=== PATIENT | female | born 1940 | race African-American/Black ===

== ENCOUNTER 2020-12-23 17:30 | Inpatient (IN) | payer MEDICARE, MEDICAID ==
[~2020-12-23] VITALS: Ht 152.4 cm; Wt 84.5 kg
[2020-12-23 19:39] LABS: BASOPHILS % 0.7 % (0.0-2.0); EOSINOPHILS % 3.8 % (0.0-5.0); HEMATOCRIT. 29.9 % (36.0-48.0); HEMOGLOBIN. 9.8 g/dL (12.0-16.0); LYMPHOCYTES % 19.2 % (20.0-50.0); MEAN CORPUSCULAR HEMOGLOBIN 31.8 pg (28.0-32.0); MEAN CORPUSCULAR VOLUME 96.8 fL (81.0-99.0); MEAN PLATELET VOLUME 8.3 fl (7.4-10.4); MONOCYTES % 9.3 % (2.0-8.0); PLATELET 234 x1000/uL (130-400); RED BLOOD CELL COUNT 3.09 mill/uL (4.2-5.4); RED CELL DISTRIBUTION WIDTH 13.6 % (11.6-14.6)
[2020-12-23 19:46] LABS: CHLORIDE 115 mEq/L (98-107)
[2020-12-23] MEDS ORDERED: FUROSEMIDE 40MG/4ML VIAL IVP NR (21:00)
[2020-12-23] MEDS: NITROGLYCERIN 50MG PREMIX 250 ML IV PRN (22:38)
[2020-12-24] VITALS (58 sets, daily range): BP systolic 113–215; BP diastolic 53–128
[2020-12-24] MEDS ORDERED: GUAIFENESIN 200MG/10ML SUGAR FREE UDC PO PRN (06:15)
[2020-12-24] MEDS ORDERED: MORPHINE SULFATE 2 MG/ML CPJ (NOT FOR IM USE) IV PRN (06:15)
[2020-12-24] MEDS ORDERED: ACETAMINOPHEN 325MG TABLET PO PRN (06:15)
[2020-12-24] MEDS ORDERED: AMLODIPINE 10MG TABLET PO SCH (06:15)
[2020-12-24] MEDS ORDERED: IPRATROPIUM/ALBUTEROL 0.5-3(2.5)MG/3ML NEB HHN PRN (06:15)
[2020-12-24] MEDS ORDERED: CLONIDINE 0.1MG TABLET PO PRN (06:15)
[2020-12-24] MEDS ORDERED: ONDANSETRON HCL 4MG/2ML INJ IV PRN (06:15)
[2020-12-24] MEDS ORDERED: FUROSEMIDE 40MG/4ML VIAL IV SCH ×2 (06:15→18:00)
[2020-12-24] MEDS ORDERED: MAGNESIUM/ALUMINUM HYDROXIDE/SIMETHICONE 30ML UDC PO PRN (09:00)
[2020-12-24] MEDS ORDERED: DOCUSATE SODIUM 100MG CAPSULE PO PRN (09:00)
[2020-12-24] MEDS ORDERED: ISOSORBIDE DINITRATE 10MG TABLET PO SCH (09:45)
[2020-12-24] MEDS ORDERED: NALOXONE HCL 0.4MG/ML VIAL IV PRN (10:00)
[2020-12-24] MEDS: ASPIRIN 81MG EC TABLET PO SCH (10:11)
[2020-12-24] MEDS: ENOXAPARIN 30MG/0.3ML SYR SUBCUT SCH (10:11)
[2020-12-24] MEDS ORDERED: LIDOCAINE HCL 1% 10 MG/ML 10ML VIAL ONE (11:12)
[2020-12-24] MEDS: FUROSEMIDE 40MG/4ML VIAL IV SCH ×2 (11:14→17:17)
[2020-12-24] MEDS: CARVEDILOL 6.25 MG TABLET PO SCH ×2 (11:14→20:51)
[2020-12-24] MEDS: HYDRALAZINE HCL 100MG TABLET PO SCH ×3 (11:15→17:18)
[2020-12-24] MEDS ORDERED: NITROGLYCERIN 50MG PREMIX 250 ML IV PRN (11:30)
[2020-12-24] MEDS: NITROGLYCERIN 50MG PREMIX 250 ML IV PRN (11:55)
[2020-12-24] MEDS: ISOSORBIDE DINITRATE 20MG TABLET PO SCH ×2 (12:58→17:18)
[2020-12-24] MEDS ORDERED: HYDRALAZINE HCL 25MG TABLET PO SCH (13:00)
[2020-12-24] MEDS: BUDESONIDE 0.5MG/2ML NEB HHN SCH (20:17)
[2020-12-24] MEDS: IPRATROPIUM/ALBUTEROL 0.5-3(2.5)MG/3ML NEB HHN SCH (20:17)
[2020-12-24] MEDS: ATORVASTATIN CALCIUM 40MG TABLET PO SCH (20:51)
[2020-12-25] VITALS (82 sets, daily range): BP systolic 103–154; BP diastolic 45–96
[2020-12-25] MEDS: IPRATROPIUM/ALBUTEROL 0.5-3(2.5)MG/3ML NEB HHN SCH ×4 (00:34→20:52)
[2020-12-25 05:57] LABS: BASOPHILS % 0.8 % (0.0-2.0); EOSINOPHILS % 0.7 % (0.0-5.0); HEMATOCRIT. 24.7 % (36.0-48.0); HEMOGLOBIN. 8.3 g/dL (12.0-16.0); LYMPHOCYTES % 14.9 % (20.0-50.0); MEAN CORPUSCULAR HEMOGLOBIN 32.3 pg (28.0-32.0); MEAN CORPUSCULAR VOLUME 95.9 fL (81.0-99.0); MEAN PLATELET VOLUME 8.5 fl (7.4-10.4); MONOCYTES % 9.6 % (2.0-8.0); PLATELET 205 x1000/uL (130-400); RED BLOOD CELL COUNT 2.58 mill/uL (4.2-5.4); RED CELL DISTRIBUTION WIDTH 13.5 % (11.6-14.6)
[2020-12-25] MEDS: FUROSEMIDE 40MG/4ML VIAL IV SCH ×2 (05:59→17:52)
[2020-12-25 06:01] LABS: CHLORIDE 114 mEq/L (98-107)
[2020-12-25 06:11] LABS: LDL CHOLESTEROL 69 mg/dL (5-100)
[2020-12-25 06:13] LABS: HDL CHOLESTEROL 42 mg/dL (40-59)
[2020-12-25] MEDS: ENOXAPARIN 30MG/0.3ML SYR SUBCUT SCH (09:15)
[2020-12-25] MEDS: ASPIRIN 81MG EC TABLET PO SCH (09:15)
[2020-12-25] MEDS: HYDRALAZINE HCL 100MG TABLET PO SCH ×3 (09:15→17:52)
[2020-12-25] MEDS: ISOSORBIDE DINITRATE 20MG TABLET PO SCH ×3 (09:15→17:52)
[2020-12-25] MEDS: CARVEDILOL 6.25 MG TABLET PO SCH ×2 (09:15→20:26)
[2020-12-25 14:35] LABS: CREATINE KINASE 40 IU/L (26-192)
[2020-12-25] MEDS: BUDESONIDE 0.5MG/2ML NEB HHN SCH ×2 (16:55→20:52)
[2020-12-25] MEDS: ATORVASTATIN CALCIUM 40MG TABLET PO SCH (20:26)
[2020-12-26] MEDS: IPRATROPIUM/ALBUTEROL 0.5-3(2.5)MG/3ML NEB HHN SCH ×4 (01:32→21:43)
[2020-12-26] MEDS: FUROSEMIDE 40MG/4ML VIAL IV SCH (05:35)
[2020-12-26 07:13] LABS: BASOPHILS % 0.8 % (0.0-2.0); HEMATOCRIT. 23.6 % (36.0-48.0); HEMOGLOBIN. 8.1 g/dL (12.0-16.0); LYMPHOCYTES % 16.7 % (20.0-50.0); MEAN CORPUSCULAR HEMOGLOBIN 32.6 pg (28.0-32.0); MEAN CORPUSCULAR VOLUME 95.5 fL (81.0-99.0); MEAN PLATELET VOLUME 8.3 fl (7.4-10.4); NEUTROPHILS % 66.5 % (40.0-76.0); PLATELET 199 x1000/uL (130-400); RED BLOOD CELL COUNT 2.48 mill/uL (4.2-5.4); RED CELL DISTRIBUTION WIDTH 13.7 % (11.6-14.6)
[2020-12-26 08:32] VITALS: BP 145/63
[2020-12-26] MEDS: HYDRALAZINE HCL 100MG TABLET PO SCH ×3 (09:01→18:55)
[2020-12-26] MEDS: ENOXAPARIN 30MG/0.3ML SYR SUBCUT SCH (09:01)
[2020-12-26] MEDS: CARVEDILOL 6.25 MG TABLET PO SCH ×2 (09:01→21:10)
[2020-12-26] MEDS: ISOSORBIDE DINITRATE 20MG TABLET PO SCH ×3 (09:01→18:55)
[2020-12-26] MEDS: ASPIRIN 81MG EC TABLET PO SCH (09:01)
[2020-12-26] MEDS: BUDESONIDE 0.5MG/2ML NEB HHN SCH ×2 (09:10→21:43)
[2020-12-26 12:07] VITALS: BP 126/56
[2020-12-26 16:00] VITALS: BP 134/57
[2020-12-26 19:59] LABS: CLARITY URINE CLOUDY (CLEAR); COLOR URINE YELLOW (YELLOW); KETONES URINE NEGATIVE (NEGATIVE); LEUKOCYTE ESTERASE URINE TRACE (NEGATIVE); NITRITE URINE NEGATIVE (NEGATIVE); OCCULT BLOOD URINE NEGATIVE (NEGATIVE); PH URINE 6.5 (4.5-8.0); PROTEIN URINE 3+ (NEGATIVE); SPECIFIC GRAVITY URINE 1.013 (1.005-1.030); UROBILINOGEN URINE 0.2 E.U./dL (0.2-1.0)
[2020-12-26 20:00] VITALS: BP 131/65
[2020-12-26] MEDS: ATORVASTATIN CALCIUM 40MG TABLET PO SCH (21:10)
[2020-12-27] VITALS (7 sets, daily range): BP systolic 124–164; BP diastolic 58–78
[2020-12-27] MEDS: IPRATROPIUM/ALBUTEROL 0.5-3(2.5)MG/3ML NEB HHN SCH ×3 (01:21→15:24)
[2020-12-27 06:45] LABS: HEMATOCRIT. 23.7 % (36.0-48.0); HEMOGLOBIN. 7.9 g/dL (12.0-16.0); MEAN CORPUSCULAR HEMOGLOBIN 32.6 pg (28.0-32.0); MEAN CORPUSCULAR VOLUME 97.3 fL (81.0-99.0); MEAN PLATELET VOLUME 8.5 fl (7.4-10.4); PLATELET 209 x1000/uL (130-400); RED BLOOD CELL COUNT 2.44 mill/uL (4.2-5.4); RED CELL DISTRIBUTION WIDTH 13.6 % (11.6-14.6)
[2020-12-27 06:59] LABS: PHOSPHORUS 4.4 mg/dL (2.5-4.9)
[2020-12-27] MEDS: ENOXAPARIN 30MG/0.3ML SYR SUBCUT SCH (08:48)
[2020-12-27] MEDS: HYDRALAZINE HCL 100MG TABLET PO SCH ×3 (08:49→18:04)
[2020-12-27] MEDS: CARVEDILOL 6.25 MG TABLET PO SCH (08:49)
[2020-12-27] MEDS: ISOSORBIDE DINITRATE 20MG TABLET PO SCH ×3 (08:49→18:04)
[2020-12-27] MEDS: ASPIRIN 81MG EC TABLET PO SCH (08:49)
[2020-12-27] MEDS ORDERED: FUROSEMIDE 40MG/4ML VIAL IV SCH (09:00)
[2020-12-27 12:07] LABS: PLATELET ESTIMATE NORMAL
[2020-12-27 13:07] LABS: ANTI-NUCLEAR ANTIBODIES DIRECT Negative (Negative)
[2020-12-27] MEDS: BUDESONIDE 0.5MG/2ML NEB HHN SCH (15:26)
== END 2020-12-27 20:50 | disposition home health service (06) | DRG 291 ==
LOC: ER 17:30 → MICUSO 22:17 → CVICU 12-24 10:50 → 6WST 12-25 22:30
PROVIDERS: ADMIT Hospitalist; ATTEND Hospitalist
PROC: 5A09357 Assistance with Respiratory Ventilation, Less than 24 Consecutive Hours, Continuous Positive Airway Pressure (ICD-10-PCS; principal; 2020-12-23)
PROC: 5A09357 Assistance with Respiratory Ventilation, Less than 24 Consecutive Hours, Continuous Positive Airway Pressure (ICD-10-PCS; 2020-12-24)
PROC: 02HV33Z Insertion of Infusion Device into Superior Vena Cava, Percutaneous Approach (ICD-10-PCS; 2020-12-24)
PROC: B548ZZA Ultrasonography of Superior Vena Cava, Guidance (ICD-10-PCS; 2020-12-24)
DX: I13.0 Hypertensive heart and chronic kidney disease with heart failure and stage 1 through stage 4 chronic kidney disease, or unspecified chronic kidney disease (principal); I50.33 Acute on chronic diastolic (congestive) heart failure; J96.01 Acute respiratory failure with hypoxia; I16.1 Hypertensive emergency; N17.9 Acute kidney failure, unspecified; E44.1 Mild protein-calorie malnutrition; I42.9 Cardiomyopathy, unspecified; I34.0 Nonrheumatic mitral (valve) insufficiency; J44.9 Chronic obstructive pulmonary disease, unspecified; N18.9 Chronic kidney disease, unspecified; D64.9 Anemia, unspecified; Z20.822 Contact with and (suspected) exposure to COVID-19; E11.22 Type 2 diabetes mellitus with diabetic chronic kidney disease; Z68.36 Body mass index [BMI] 36.0-36.9, adult; Z80.3 Family history of malignant neoplasm of breast; Z82.49 Family history of ischemic heart disease and other diseases of the circulatory system; Z83.3 Family history of diabetes mellitus; Z86.73 Personal history of transient ischemic attack (TIA), and cerebral infarction without residual deficits; Z87.891 Personal history of nicotine dependence; Z91.19 Patient's noncompliance with other medical treatment and regimen; Z88.1 Allergy status to other antibiotic agents
CPT/HCPCS: 36415; 71045; 76770; 76937; 80048; 80053; 80061; 81003; 82550; 82962; 83735; 83880; 84100; 84484; 85025; 86038; 86160; 87426; 93005; 93306; 93970; 94640; 94660; 97162; 99285; C1725; J1650; J1940; J3490; J7040; J7626; A4315

== ENCOUNTER 2021-01-01 14:59 | Inpatient (IN) | payer MEDICARE, MEDICAID ==
[~2021-01-01] VITALS: Ht 152.4 cm; Wt 74.5 kg
[2021-01-01] MEDS ORDERED: DEXTROSE 50% WATER 50ML SYRINGE IV ONE ×3 (16:00→23:45)
[2021-01-01 17:03] LABS: BASOPHILS % 0.8 % (0.0-2.0); EOSINOPHILS % 0.9 % (0.0-5.0); HEMATOCRIT. 29.1 % (36.0-48.0); HEMOGLOBIN. 9.6 g/dL (12.0-16.0); LYMPHOCYTES % 13.7 % (20.0-50.0); MEAN CORPUSCULAR HEMOGLOBIN 32.3 pg (28.0-32.0); MEAN CORPUSCULAR VOLUME 97.4 fL (81.0-99.0); MEAN PLATELET VOLUME 8.2 fl (7.4-10.4); MONOCYTES % 10.6 % (2.0-8.0); PLATELET 308 x1000/uL (130-400); RED BLOOD CELL COUNT 2.98 mill/uL (4.2-5.4); RED CELL DISTRIBUTION WIDTH 13.5 % (11.6-14.6)
[2021-01-01 17:12] LABS: CHLORIDE 109 mEq/L (98-107)
[2021-01-01] MEDS ORDERED: DEXT 5%/0.9% NACL 1,000 ML IV ONE (18:45)
[2021-01-01] MEDS ORDERED: DIPHENHYDRAMINE 50MG/ML VIAL IV PRN (19:30)
[2021-01-01] MEDS ORDERED: ONDANSETRON HCL 4MG/2ML INJ IV PRN (19:30)
[2021-01-01] MEDS ORDERED: CLONIDINE 0.1MG TABLET PO PRN (19:30)
[2021-01-01] MEDS ORDERED: IPRATROPIUM/ALBUTEROL 0.5-3(2.5)MG/3ML NEB HHN PRN (19:30)
[2021-01-01] MEDS ORDERED: DEXT 10% WATER 1,000 ML IV ONE (22:45)
[2021-01-02] VITALS (46 sets, daily range): BP systolic 121–160; BP diastolic 62–90
[2021-01-02] MEDS: DEXTROSE 50% WATER 50ML SYRINGE IV PRN ×5 (01:52→11:33)
[2021-01-02] MEDS: BLOOD SUGAR DIAGNOSTIC STRIP TEST SCH ×22 (02:00→23:00)
[2021-01-02] MEDS: DEXT 10% WATER 1,000 ML IV SCH ×2 (02:36→17:38)
[2021-01-02 05:55] LABS: CHLORIDE 108 mEq/L (98-107)
[2021-01-02 05:56] LABS: BASOPHILS % 0.6 % (0.0-2.0); EOSINOPHILS % 1.9 % (0.0-5.0); HEMATOCRIT. 25.9 % (36.0-48.0); HEMOGLOBIN. 8.9 g/dL (12.0-16.0); LYMPHOCYTES % 17.1 % (20.0-50.0); MEAN CORPUSCULAR HEMOGLOBIN 32.9 pg (28.0-32.0); MEAN CORPUSCULAR VOLUME 96.1 fL (81.0-99.0); MEAN PLATELET VOLUME 7.8 fl (7.4-10.4); MONOCYTES % 10.5 % (2.0-8.0); NEUTROPHILS % 69.9 % (40.0-76.0); PLATELET 300 x1000/uL (130-400); RED CELL DISTRIBUTION WIDTH 13.5 % (11.6-14.6)
[2021-01-02] MEDS ORDERED: ISOS20TA57 PO (08:32)
[2021-01-02] MEDS ORDERED: FURO-151 PO (08:32)
[2021-01-02] MEDS ORDERED: AMLO10TA4 PO (08:32)
[2021-01-02] MEDS ORDERED: GLIM1TAB PO (08:32)
[2021-01-02] MEDS ORDERED: OMEP20CA14 PO (08:32)
[2021-01-02] MEDS ORDERED: ASPI-1497 PO (08:32)
[2021-01-02] MEDS ORDERED: LIP40 MT (08:32)
[2021-01-02] MEDS ORDERED: HYDR100T26 PO (08:32)
[2021-01-02] MEDS ORDERED: AMLODIPINE 10MG TABLET PO SCH (08:45)
[2021-01-02] MEDS: ENOXAPARIN 30MG/0.3ML SYR SUBCUT SCH (10:11)
[2021-01-02] MEDS: ATORVASTATIN CALCIUM 40MG TABLET PO SCH (21:05)
[2021-01-03] VITALS (47 sets, daily range): BP systolic 101–165; BP diastolic 51–84
[2021-01-03] MEDS: DEXT 10% WATER 1,000 ML IV SCH ×2 (00:18→14:56)
[2021-01-03] MEDS: BLOOD SUGAR DIAGNOSTIC STRIP TEST SCH ×22 (01:00→22:05)
[2021-01-03 06:34] LABS: BASOPHILS % 0.7 % (0.0-2.0); EOSINOPHILS % 6.2 % (0.0-5.0); HEMATOCRIT. 27.7 % (36.0-48.0); HEMOGLOBIN. 9.1 g/dL (12.0-16.0); LYMPHOCYTES % 28.1 % (20.0-50.0); MEAN CORPUSCULAR HEMOGLOBIN 31.6 pg (28.0-32.0); MEAN CORPUSCULAR VOLUME 96.7 fL (81.0-99.0); MEAN PLATELET VOLUME 8.3 fl (7.4-10.4); MONOCYTES % 14.2 % (2.0-8.0); NEUTROPHILS % 50.8 % (40.0-76.0); PLATELET 303 x1000/uL (130-400); RED BLOOD CELL COUNT 2.87 mill/uL (4.2-5.4); RED CELL DISTRIBUTION WIDTH 13.8 % (11.6-14.6)
[2021-01-03] MEDS: AMLODIPINE 10MG TABLET PO SCH (09:10)
[2021-01-03] MEDS: ENOXAPARIN 30MG/0.3ML SYR SUBCUT SCH (11:06)
[2021-01-03] MEDS ORDERED: ISOS20TA8 PO (15:29)
[2021-01-03 15:32] LABS: CLARITY URINE CLOUDY (CLEAR); COLOR URINE YELLOW (YELLOW); KETONES URINE NEGATIVE (NEGATIVE); LEUKOCYTE ESTERASE URINE 3+ (NEGATIVE); NITRITE URINE NEGATIVE (NEGATIVE); OCCULT BLOOD URINE TRACE (NEGATIVE); PROTEIN URINE 2+ (NEGATIVE); SPECIFIC GRAVITY URINE 1.005 (1.005-1.030); UROBILINOGEN URINE 0.2 E.U./dL (0.2-1.0)
[2021-01-03] MEDS: OMEPRAZOLE 20MG CAPSULE EXTENDED RELEASE PO SCH (16:13)
[2021-01-03] MEDS ORDERED: ISOSORBIDE MONONITRATE 20MG TABLET PO SCH (17:00)
[2021-01-03] MEDS: HYDRALAZINE HCL 100MG TABLET PO SCH (17:17)
[2021-01-03] MEDS: FUROSEMIDE 40MG TABLET PO SCH (17:17)
[2021-01-03] MEDS: ISOSORBIDE DINITRATE 20MG TABLET PO SCH (17:18)
[2021-01-03] MEDS: ATORVASTATIN CALCIUM 40MG TABLET PO SCH (20:35)
[2021-01-04] VITALS (26 sets, daily range): BP systolic 110–148; BP diastolic 53–76
[2021-01-04] MEDS: BLOOD SUGAR DIAGNOSTIC STRIP TEST SCH ×6 (04:00→20:27)
[2021-01-04 05:41] LABS: MEAN CORPUSCULAR VOLUME 95.9 fL (81.0-99.0); MEAN PLATELET VOLUME 7.9 fl (7.4-10.4); PLATELET 309 x1000/uL (130-400); RED BLOOD CELL COUNT 2.92 mill/uL (4.2-5.4); RED CELL DISTRIBUTION WIDTH 13.6 % (11.6-14.6)
[2021-01-04] MEDS: ENOXAPARIN 30MG/0.3ML SYR SUBCUT SCH (08:24)
[2021-01-04] MEDS: ISOSORBIDE DINITRATE 20MG TABLET PO SCH ×2 (08:25→16:19)
[2021-01-04] MEDS: FUROSEMIDE 40MG TABLET PO SCH ×2 (08:25→16:18)
[2021-01-04] MEDS: AMLODIPINE 10MG TABLET PO SCH (08:25)
[2021-01-04] MEDS: OMEPRAZOLE 20MG CAPSULE EXTENDED RELEASE PO SCH (08:25)
[2021-01-04] MEDS: ASPIRIN 81MG EC TABLET PO SCH (08:26)
[2021-01-04] MEDS: HYDRALAZINE HCL 100MG TABLET PO SCH ×3 (08:26→16:18)
[2021-01-04 13:25] LABS: PLATELET ESTIMATE NORMAL
[2021-01-04] MEDS: ATORVASTATIN CALCIUM 40MG TABLET PO SCH (20:57)
[2021-01-05] VITALS: BP 141/71
[2021-01-05] MEDS: BLOOD SUGAR DIAGNOSTIC STRIP TEST SCH ×6 (00:28→20:00)
[2021-01-05] MEDS: ISOSORBIDE DINITRATE 20MG TABLET PO SCH ×4 (00:33→16:45)
[2021-01-05 04:00] VITALS: BP 128/50
[2021-01-05] MEDS: OMEPRAZOLE 20MG CAPSULE EXTENDED RELEASE PO SCH (06:31)
[2021-01-05] MEDS: FUROSEMIDE 40MG TABLET PO SCH ×2 (07:15→16:45)
[2021-01-05 08:00] VITALS: BP 148/72
[2021-01-05 08:02] LABS: EOSINOPHILS % 3.6 % (0.0-5.0); HEMATOCRIT. 25.6 % (36.0-48.0); HEMOGLOBIN. 8.6 g/dL (12.0-16.0); LYMPHOCYTES % 20.4 % (20.0-50.0); MEAN CORPUSCULAR HEMOGLOBIN 32.1 pg (28.0-32.0); MEAN CORPUSCULAR VOLUME 95.7 fL (81.0-99.0); MONOCYTES % 14.3 % (2.0-8.0); NEUTROPHILS % 60.7 % (40.0-76.0); PLATELET 306 x1000/uL (130-400); RED BLOOD CELL COUNT 2.68 mill/uL (4.2-5.4); RED CELL DISTRIBUTION WIDTH 13.4 % (11.6-14.6)
[2021-01-05] MEDS: HYDRALAZINE HCL 100MG TABLET PO SCH ×3 (08:41→16:44)
[2021-01-05] MEDS: AMLODIPINE 10MG TABLET PO SCH (08:41)
[2021-01-05] MEDS: ENOXAPARIN 30MG/0.3ML SYR SUBCUT SCH (08:42)
[2021-01-05] MEDS: ASPIRIN 81MG EC TABLET PO SCH (08:42)
[2021-01-05 12:00] VITALS: BP 147/68
[2021-01-05 16:00] VITALS: BP 126/55
[2021-01-05 20:00] VITALS: BP 144/67
[2021-01-05] MEDS: ATORVASTATIN CALCIUM 40MG TABLET PO SCH (21:04)
[2021-01-06] VITALS: BP 122/56
[2021-01-06] MEDS: BLOOD SUGAR DIAGNOSTIC STRIP TEST SCH ×6 (00:34→20:00)
[2021-01-06 04:00] VITALS: BP 135/62
[2021-01-06] MEDS: FUROSEMIDE 40MG TABLET PO SCH ×2 (06:23→17:29)
[2021-01-06] MEDS: OMEPRAZOLE 20MG CAPSULE EXTENDED RELEASE PO SCH (06:23)
[2021-01-06 08:00] VITALS: BP 152/56
[2021-01-06] MEDS: HYDRALAZINE HCL 100MG TABLET PO SCH ×3 (08:49→17:29)
[2021-01-06] MEDS: ASPIRIN 81MG EC TABLET PO SCH (08:49)
[2021-01-06] MEDS: AMLODIPINE 10MG TABLET PO SCH (08:50)
[2021-01-06] MEDS: ISOSORBIDE DINITRATE 20MG TABLET PO SCH ×3 (08:50→17:29)
[2021-01-06] MEDS: ENOXAPARIN 30MG/0.3ML SYR SUBCUT SCH (10:24)
[2021-01-06 12:00] VITALS: BP 134/65
[2021-01-06 15:54] LABS: BASOPHILS % 1.1 % (0.0-2.0); HEMATOCRIT. 25.7 % (36.0-48.0); HEMOGLOBIN. 8.6 g/dL (12.0-16.0); LYMPHOCYTES % 18.1 % (20.0-50.0); MEAN CORPUSCULAR HEMOGLOBIN 32.1 pg (28.0-32.0); MEAN CORPUSCULAR VOLUME 96.3 fL (81.0-99.0); MEAN PLATELET VOLUME 7.6 fl (7.4-10.4); MONOCYTES % 13.8 % (2.0-8.0); PLATELET 323 x1000/uL (130-400); RED BLOOD CELL COUNT 2.67 mill/uL (4.2-5.4); RED CELL DISTRIBUTION WIDTH 13.4 % (11.6-14.6)
[2021-01-06 16:00] VITALS: BP 147/67
[2021-01-06 20:00] VITALS: BP 140/60
[2021-01-06] MEDS: ATORVASTATIN CALCIUM 40MG TABLET PO SCH (21:15)
[2021-01-07] VITALS: BP 135/66
[2021-01-07 04:00] VITALS: BP 137/64
[2021-01-07] MEDS: BLOOD SUGAR DIAGNOSTIC STRIP TEST SCH ×6 (04:12→20:32)
[2021-01-07] MEDS: OMEPRAZOLE 20MG CAPSULE EXTENDED RELEASE PO SCH (05:51)
[2021-01-07] MEDS: FUROSEMIDE 40MG TABLET PO SCH ×2 (05:51→18:26)
[2021-01-07 06:25] LABS: HEMATOCRIT. 25.1 % (36.0-48.0); HEMOGLOBIN. 8.5 g/dL (12.0-16.0); MEAN CORPUSCULAR HEMOGLOBIN 32.6 pg (28.0-32.0); MEAN CORPUSCULAR VOLUME 96.2 fL (81.0-99.0); MEAN PLATELET VOLUME 7.7 fl (7.4-10.4); PLATELET 309 x1000/uL (130-400); RED BLOOD CELL COUNT 2.61 mill/uL (4.2-5.4); RED CELL DISTRIBUTION WIDTH 13.3 % (11.6-14.6)
[2021-01-07 06:53] LABS: FOLIC ACID (FOLATE) SERUM 5.3 ng/mL (>5.38)
[2021-01-07 08:00] VITALS: BP 150/66
[2021-01-07] MEDS: ASPIRIN 81MG EC TABLET PO SCH (09:06)
[2021-01-07] MEDS: ISOSORBIDE DINITRATE 20MG TABLET PO SCH ×3 (09:06→18:26)
[2021-01-07] MEDS: HYDRALAZINE HCL 100MG TABLET PO SCH ×3 (09:06→18:26)
[2021-01-07] MEDS: AMLODIPINE 10MG TABLET PO SCH (09:06)
[2021-01-07] MEDS: ENOXAPARIN 30MG/0.3ML SYR SUBCUT SCH (10:25)
[2021-01-07 12:00] VITALS: BP 134/72
[2021-01-07 16:00] VITALS: BP 129/61
[2021-01-07 18:16] LABS: PLATELET ESTIMATE NORMAL
[2021-01-07] MEDS: FOLIC ACID 1MG TABLET PO SCH (18:26)
[2021-01-07 20:00] VITALS: BP 144/71
[2021-01-07] MEDS: ATORVASTATIN CALCIUM 40MG TABLET PO SCH (20:41)
[2021-01-08] VITALS: BP 136/68
[2021-01-08 04:00] VITALS: BP_SYST 128; BP_SYST 143; BP_DIAS 70; BP_DIAS 83
[2021-01-08] MEDS: BLOOD SUGAR DIAGNOSTIC STRIP TEST SCH ×6 (04:00→20:00)
[2021-01-08] MEDS: FUROSEMIDE 40MG TABLET PO SCH ×2 (06:33→17:24)
[2021-01-08] MEDS: OMEPRAZOLE 20MG CAPSULE EXTENDED RELEASE PO SCH (06:33)
[2021-01-08 06:53] LABS: HEMATOCRIT. 24.9 % (36.0-48.0); HEMOGLOBIN. 8.6 g/dL (12.0-16.0); MEAN CORPUSCULAR HEMOGLOBIN 33.1 pg (28.0-32.0); MEAN CORPUSCULAR VOLUME 95.9 fL (81.0-99.0); MEAN PLATELET VOLUME 7.8 fl (7.4-10.4); PLATELET 310 x1000/uL (130-400); RED CELL DISTRIBUTION WIDTH 12.9 % (11.6-14.6)
[2021-01-08 08:00] VITALS: BP 145/65
[2021-01-08] MEDS: ENOXAPARIN 30MG/0.3ML SYR SUBCUT SCH (08:53)
[2021-01-08] MEDS: FOLIC ACID 1MG TABLET PO SCH (08:53)
[2021-01-08] MEDS: ISOSORBIDE DINITRATE 20MG TABLET PO SCH ×3 (08:53→17:08)
[2021-01-08] MEDS: ASPIRIN 81MG EC TABLET PO SCH (08:53)
[2021-01-08] MEDS: AMLODIPINE 10MG TABLET PO SCH (08:54)
[2021-01-08] MEDS: HYDRALAZINE HCL 100MG TABLET PO SCH ×3 (08:54→17:08)
[2021-01-08 12:00] VITALS: BP 113/55
[2021-01-08 14:32] LABS: PLATELET ESTIMATE NORMAL
[2021-01-08 16:00] VITALS: BP 110/50
[2021-01-08 20:00] VITALS: BP 134/60
[2021-01-08] MEDS: ATORVASTATIN CALCIUM 40MG TABLET PO SCH (20:41)
[2021-01-09] VITALS: BP 139/66
[2021-01-09 04:00] VITALS: BP 132/65
[2021-01-09] MEDS: BLOOD SUGAR DIAGNOSTIC STRIP TEST SCH ×6 (04:00→20:09)
[2021-01-09 06:47] LABS: BASOPHILS % 0.8 % (0.0-2.0); HEMATOCRIT. 26.9 % (36.0-48.0); HEMOGLOBIN. 9.2 g/dL (12.0-16.0); LYMPHOCYTES % 17.5 % (20.0-50.0); MEAN CORPUSCULAR HEMOGLOBIN 32.8 pg (28.0-32.0); MEAN CORPUSCULAR VOLUME 95.9 fL (81.0-99.0); MEAN PLATELET VOLUME 7.5 fl (7.4-10.4); MONOCYTES % 11.7 % (2.0-8.0); PLATELET 349 x1000/uL (130-400); RED BLOOD CELL COUNT 2.81 mill/uL (4.2-5.4); RED CELL DISTRIBUTION WIDTH 13.1 % (11.6-14.6)
[2021-01-09] MEDS: FUROSEMIDE 40MG TABLET PO SCH ×2 (07:21→18:14)
[2021-01-09] MEDS: OMEPRAZOLE 20MG CAPSULE EXTENDED RELEASE PO SCH (07:21)
[2021-01-09 08:00] VITALS: BP 160/76
[2021-01-09] MEDS: ISOSORBIDE DINITRATE 20MG TABLET PO SCH ×3 (10:42→18:17)
[2021-01-09] MEDS: HYDRALAZINE HCL 100MG TABLET PO SCH ×3 (10:42→18:18)
[2021-01-09] MEDS: ENOXAPARIN 30MG/0.3ML SYR SUBCUT SCH (10:43)
[2021-01-09] MEDS: ASPIRIN 81MG EC TABLET PO SCH (10:43)
[2021-01-09] MEDS: FOLIC ACID 1MG TABLET PO SCH (10:43)
[2021-01-09] MEDS: AMLODIPINE 10MG TABLET PO SCH (10:43)
[2021-01-09 12:00] VITALS: BP 127/58
[2021-01-09 16:00] VITALS: BP 140/62
[2021-01-09] MEDS: AMOXICILLIN/POTASSIUM CLAVULANATE 500/125MG TAB PO SCH (18:14)
[2021-01-09 20:00] VITALS: BP 139/61
[2021-01-09] MEDS ORDERED: CEPHALEXIN 250MG CAPSULE PO SCH (21:00)
[2021-01-09] MEDS: ATORVASTATIN CALCIUM 40MG TABLET PO SCH (22:06)
[2021-01-10] VITALS: BP 119/52
[2021-01-10] MEDS: BLOOD SUGAR DIAGNOSTIC STRIP TEST SCH ×6 (00:59→20:00)
[2021-01-10 04:00] VITALS: BP_SYST 113; BP_SYST 133; BP_DIAS 60; BP_DIAS 82
[2021-01-10] MEDS: AMOXICILLIN/POTASSIUM CLAVULANATE 500/125MG TAB PO SCH ×2 (07:05→18:37)
[2021-01-10] MEDS: OMEPRAZOLE 20MG CAPSULE EXTENDED RELEASE PO SCH (07:05)
[2021-01-10] MEDS: FUROSEMIDE 40MG TABLET PO SCH ×2 (07:06→18:36)
[2021-01-10 08:00] VITALS: BP 117/49
[2021-01-10] MEDS: AMLODIPINE 10MG TABLET PO SCH (09:29)
[2021-01-10] MEDS: ASPIRIN 81MG EC TABLET PO SCH (09:29)
[2021-01-10 09:30] LABS: BASOPHILS % 1.1 % (0.0-2.0); EOSINOPHILS % 3.3 % (0.0-5.0); HEMATOCRIT. 26.8 % (36.0-48.0); HEMOGLOBIN. 8.9 g/dL (12.0-16.0); LYMPHOCYTES % 21.4 % (20.0-50.0); MEAN CORPUSCULAR HEMOGLOBIN 31.5 pg (28.0-32.0); MEAN CORPUSCULAR VOLUME 95.6 fL (81.0-99.0); MEAN PLATELET VOLUME 7.6 fl (7.4-10.4); MONOCYTES % 11.8 % (2.0-8.0); NEUTROPHILS % 62.4 % (40.0-76.0); PLATELET 359 x1000/uL (130-400); RED BLOOD CELL COUNT 2.81 mill/uL (4.2-5.4); RED CELL DISTRIBUTION WIDTH 12.9 % (11.6-14.6)
[2021-01-10] MEDS: ENOXAPARIN 30MG/0.3ML SYR SUBCUT SCH (09:30)
[2021-01-10] MEDS: FOLIC ACID 1MG TABLET PO SCH (09:30)
[2021-01-10] MEDS: ISOSORBIDE DINITRATE 20MG TABLET PO SCH ×3 (09:30→18:37)
[2021-01-10] MEDS: HYDRALAZINE HCL 100MG TABLET PO SCH ×3 (09:30→18:37)
[2021-01-10 12:00] VITALS: BP 124/56
[2021-01-10 16:00] VITALS: BP 122/54
[2021-01-10 20:00] VITALS: BP 156/73
[2021-01-10] MEDS: ATORVASTATIN CALCIUM 40MG TABLET PO SCH (21:06)
[2021-01-11] VITALS: BP 136/65
[2021-01-11] MEDS: BLOOD SUGAR DIAGNOSTIC STRIP TEST SCH ×7 (03:31→23:21)
[2021-01-11 04:00] VITALS: BP 147/75
[2021-01-11] MEDS: AMOXICILLIN/POTASSIUM CLAVULANATE 500/125MG TAB PO SCH ×2 (06:25→17:34)
[2021-01-11] MEDS: FUROSEMIDE 40MG TABLET PO SCH ×2 (06:25→17:34)
[2021-01-11] MEDS: OMEPRAZOLE 20MG CAPSULE EXTENDED RELEASE PO SCH (06:25)
[2021-01-11 06:49] LABS: BASOPHILS % 1.2 % (0.0-2.0); EOSINOPHILS % 6.2 % (0.0-5.0); HEMATOCRIT. 28.9 % (36.0-48.0); HEMOGLOBIN. 9.7 g/dL (12.0-16.0); MEAN CORPUSCULAR HEMOGLOBIN 32.2 pg (28.0-32.0); MEAN CORPUSCULAR VOLUME 96.1 fL (81.0-99.0); MEAN PLATELET VOLUME 7.5 fl (7.4-10.4); MONOCYTES % 14.3 % (2.0-8.0); NEUTROPHILS % 56.3 % (40.0-76.0); PLATELET 364 x1000/uL (130-400); RED BLOOD CELL COUNT 3.01 mill/uL (4.2-5.4); RED CELL DISTRIBUTION WIDTH 13.1 % (11.6-14.6)
[2021-01-11 08:00] VITALS: BP 155/77
[2021-01-11] MEDS: AMLODIPINE 10MG TABLET PO SCH (09:23)
[2021-01-11] MEDS: ISOSORBIDE DINITRATE 20MG TABLET PO SCH ×3 (09:23→17:34)
[2021-01-11] MEDS: ASPIRIN 81MG EC TABLET PO SCH (09:23)
[2021-01-11] MEDS: FOLIC ACID 1MG TABLET PO SCH (09:23)
[2021-01-11] MEDS: HYDRALAZINE HCL 100MG TABLET PO SCH ×3 (09:23→17:34)
[2021-01-11] MEDS: ENOXAPARIN 30MG/0.3ML SYR SUBCUT SCH (09:24)
[2021-01-11 12:00] VITALS: BP 127/64
[2021-01-11 16:00] VITALS: BP 121/64
[2021-01-11 20:00] VITALS: BP 129/59
[2021-01-11] MEDS: ATORVASTATIN CALCIUM 40MG TABLET PO SCH (22:04)
[2021-01-12] VITALS: BP 114/60
[2021-01-12 04:00] VITALS: BP 145/72
[2021-01-12] MEDS: BLOOD SUGAR DIAGNOSTIC STRIP TEST SCH ×5 (04:55→20:00)
[2021-01-12] MEDS: OMEPRAZOLE 20MG CAPSULE EXTENDED RELEASE PO SCH (06:53)
[2021-01-12] MEDS: AMOXICILLIN/POTASSIUM CLAVULANATE 500/125MG TAB PO SCH ×2 (06:53→17:02)
[2021-01-12] MEDS: FUROSEMIDE 40MG TABLET PO SCH ×2 (06:53→17:01)
[2021-01-12 08:00] VITALS: BP 141/69
[2021-01-12] MEDS: HYDRALAZINE HCL 100MG TABLET PO SCH ×3 (08:51→17:01)
[2021-01-12] MEDS: ISOSORBIDE DINITRATE 20MG TABLET PO SCH ×3 (08:52→17:01)
[2021-01-12] MEDS: ASPIRIN 81MG EC TABLET PO SCH (08:52)
[2021-01-12] MEDS: FOLIC ACID 1MG TABLET PO SCH (08:52)
[2021-01-12] MEDS: AMLODIPINE 10MG TABLET PO SCH (08:52)
[2021-01-12] MEDS: ENOXAPARIN 30MG/0.3ML SYR SUBCUT SCH (10:32)
[2021-01-12 12:00] VITALS: BP 120/58
[2021-01-12 16:00] VITALS: BP 125/59
[2021-01-12 20:00] VITALS: BP 130/66
[2021-01-12] MEDS: ATORVASTATIN CALCIUM 40MG TABLET PO SCH (21:51)
[2021-01-13] VITALS: BP 103/55
[2021-01-13 04:00] VITALS: BP 135/62
[2021-01-13] MEDS: BLOOD SUGAR DIAGNOSTIC STRIP TEST SCH ×6 (04:00→20:43)
[2021-01-13] MEDS: OMEPRAZOLE 20MG CAPSULE EXTENDED RELEASE PO SCH (06:17)
[2021-01-13] MEDS: FUROSEMIDE 40MG TABLET PO SCH ×2 (06:17→17:25)
[2021-01-13] MEDS: AMOXICILLIN/POTASSIUM CLAVULANATE 500/125MG TAB PO SCH ×2 (06:17→17:25)
[2021-01-13 06:23] LABS: BASOPHILS % 1.3 % (0.0-2.0); HEMATOCRIT. 26.3 % (36.0-48.0); HEMOGLOBIN. 8.8 g/dL (12.0-16.0); LYMPHOCYTES % 22.9 % (20.0-50.0); MEAN CORPUSCULAR HEMOGLOBIN 32.2 pg (28.0-32.0); MEAN CORPUSCULAR VOLUME 95.8 fL (81.0-99.0); MONOCYTES % 12.8 % (2.0-8.0); PLATELET 325 x1000/uL (130-400); RED BLOOD CELL COUNT 2.75 mill/uL (4.2-5.4)
[2021-01-13 08:00] VITALS: BP 129/67
[2021-01-13] MEDS: HYDRALAZINE HCL 100MG TABLET PO SCH ×3 (08:57→17:25)
[2021-01-13] MEDS: ISOSORBIDE DINITRATE 20MG TABLET PO SCH ×3 (08:57→17:25)
[2021-01-13] MEDS: AMLODIPINE 10MG TABLET PO SCH (08:57)
[2021-01-13] MEDS: FOLIC ACID 1MG TABLET PO SCH (08:57)
[2021-01-13] MEDS: ASPIRIN 81MG EC TABLET PO SCH (08:57)
[2021-01-13] MEDS: ENOXAPARIN 30MG/0.3ML SYR SUBCUT SCH (08:58)
[2021-01-13 12:00] VITALS: BP 143/65
[2021-01-13 16:00] VITALS: BP 123/54
[2021-01-13 20:00] VITALS: BP 124/55
[2021-01-13] MEDS: ATORVASTATIN CALCIUM 40MG TABLET PO SCH (20:31)
[2021-01-14] VITALS: BP 149/75
[2021-01-14 04:00] VITALS: BP 142/67
[2021-01-14] MEDS: BLOOD SUGAR DIAGNOSTIC STRIP TEST SCH ×6 (04:02→20:00)
[2021-01-14] MEDS: AMOXICILLIN/POTASSIUM CLAVULANATE 500/125MG TAB PO SCH (06:20)
[2021-01-14] MEDS: FUROSEMIDE 40MG TABLET PO SCH ×2 (06:21→18:13)
[2021-01-14] MEDS: OMEPRAZOLE 20MG CAPSULE EXTENDED RELEASE PO SCH (06:21)
[2021-01-14 08:00] VITALS: BP 119/63
[2021-01-14] MEDS: HYDRALAZINE HCL 100MG TABLET PO SCH ×3 (08:44→18:20)
[2021-01-14] MEDS: FOLIC ACID 1MG TABLET PO SCH (08:44)
[2021-01-14] MEDS: AMLODIPINE 10MG TABLET PO SCH (08:45)
[2021-01-14] MEDS: ASPIRIN 81MG EC TABLET PO SCH (08:45)
[2021-01-14] MEDS: ISOSORBIDE DINITRATE 20MG TABLET PO SCH ×3 (08:46→18:19)
[2021-01-14] MEDS: ENOXAPARIN 30MG/0.3ML SYR SUBCUT SCH (08:47)
[2021-01-14] MEDS: CYANOCOBALAMIN 1000MCG/ML VIAL IM SCH (08:47)
[2021-01-14 11:54] VITALS: BP 121/62
[2021-01-14] MEDS: POLYVINYL ALCOHOL OPHTH DROPS 15ML BOTHEYE SCH ×2 (12:39→18:20)
[2021-01-14 16:00] VITALS: BP 118/60
[2021-01-14 20:00] VITALS: BP 114/54
[2021-01-14] MEDS: ATORVASTATIN CALCIUM 40MG TABLET PO SCH (22:02)
[2021-01-15] VITALS: BP 108/49
[2021-01-15] MEDS: POLYVINYL ALCOHOL OPHTH DROPS 15ML BOTHEYE SCH ×5 (00:41→23:47)
[2021-01-15 04:00] VITALS: BP 134/58
[2021-01-15] MEDS: BLOOD SUGAR DIAGNOSTIC STRIP TEST SCH ×7 (05:25→23:49)
[2021-01-15] MEDS: OMEPRAZOLE 20MG CAPSULE EXTENDED RELEASE PO SCH (06:48)
[2021-01-15] MEDS: FUROSEMIDE 40MG TABLET PO SCH ×2 (06:48→16:53)
[2021-01-15 08:00] VITALS: BP 120/72
[2021-01-15] MEDS: CYANOCOBALAMIN 1000MCG/ML VIAL IM SCH (10:13)
[2021-01-15] MEDS: ISOSORBIDE DINITRATE 20MG TABLET PO SCH ×3 (10:13→16:53)
[2021-01-15] MEDS: AMLODIPINE 10MG TABLET PO SCH (10:14)
[2021-01-15] MEDS: ASPIRIN 81MG EC TABLET PO SCH (10:14)
[2021-01-15] MEDS: HYDRALAZINE HCL 100MG TABLET PO SCH ×3 (10:14→16:54)
[2021-01-15] MEDS: FOLIC ACID 1MG TABLET PO SCH (10:17)
[2021-01-15] MEDS: ENOXAPARIN 30MG/0.3ML SYR SUBCUT SCH (10:19)
[2021-01-15 12:00] VITALS: BP 148/63
[2021-01-15 16:00] VITALS: BP 124/60
[2021-01-15 20:47] VITALS: BP 143/64
[2021-01-15] MEDS: ATORVASTATIN CALCIUM 40MG TABLET PO SCH (21:56)
[2021-01-16 00:05] VITALS: BP 150/68
[2021-01-16 04:00] VITALS: BP 134/59
[2021-01-16] MEDS: POLYVINYL ALCOHOL OPHTH DROPS 15ML BOTHEYE SCH ×3 (06:49→19:15)
[2021-01-16] MEDS: FUROSEMIDE 40MG TABLET PO SCH ×2 (06:49→16:25)
[2021-01-16] MEDS: OMEPRAZOLE 20MG CAPSULE EXTENDED RELEASE PO SCH (06:49)
[2021-01-16 08:00] VITALS: BP 153/72
[2021-01-16] MEDS: BLOOD SUGAR DIAGNOSTIC STRIP TEST SCH ×4 (08:00→20:00)
[2021-01-16 08:52] LABS: BASOPHILS % 1.1 % (0.0-2.0); EOSINOPHILS % 3.5 % (0.0-5.0); HEMOGLOBIN. 9.6 g/dL (12.0-16.0); LYMPHOCYTES % 20.4 % (20.0-50.0); MEAN CORPUSCULAR HEMOGLOBIN 31.5 pg (28.0-32.0); MEAN PLATELET VOLUME 7.6 fl (7.4-10.4); MONOCYTES % 8.1 % (2.0-8.0); NEUTROPHILS % 66.9 % (40.0-76.0); PLATELET 318 x1000/uL (130-400); RED BLOOD CELL COUNT 3.05 mill/uL (4.2-5.4); RED CELL DISTRIBUTION WIDTH 12.9 % (11.6-14.6)
[2021-01-16] MEDS: AMLODIPINE 10MG TABLET PO SCH (09:07)
[2021-01-16] MEDS: ISOSORBIDE DINITRATE 20MG TABLET PO SCH ×3 (09:08→16:25)
[2021-01-16] MEDS: FOLIC ACID 1MG TABLET PO SCH (09:08)
[2021-01-16] MEDS: ASPIRIN 81MG EC TABLET PO SCH (09:08)
[2021-01-16] MEDS: CYANOCOBALAMIN 1000MCG/ML VIAL IM SCH (09:09)
[2021-01-16] MEDS: ENOXAPARIN 30MG/0.3ML SYR SUBCUT SCH (09:09)
[2021-01-16] MEDS: HYDRALAZINE HCL 100MG TABLET PO SCH ×3 (09:09→16:25)
[2021-01-16 12:00] VITALS: BP 134/66
[2021-01-16 16:00] VITALS: BP 142/64
[2021-01-16 20:00] VITALS: BP 118/71
[2021-01-16] MEDS: ATORVASTATIN CALCIUM 40MG TABLET PO SCH (20:28)
[2021-01-17] VITALS: BP 147/69
[2021-01-17] MEDS: BLOOD SUGAR DIAGNOSTIC STRIP TEST SCH ×7 (00:24→23:55)
[2021-01-17] MEDS: POLYVINYL ALCOHOL OPHTH DROPS 15ML BOTHEYE SCH ×4 (00:24→17:55)
[2021-01-17 04:00] VITALS: BP 125/61
[2021-01-17] MEDS: FUROSEMIDE 40MG TABLET PO SCH ×2 (06:30→17:54)
[2021-01-17] MEDS: OMEPRAZOLE 20MG CAPSULE EXTENDED RELEASE PO SCH (06:30)
[2021-01-17] MEDS: CYANOCOBALAMIN 1000MCG/ML VIAL IM SCH (08:40)
[2021-01-17] MEDS: ISOSORBIDE DINITRATE 20MG TABLET PO SCH ×3 (08:40→17:54)
[2021-01-17] MEDS: FOLIC ACID 1MG TABLET PO SCH (08:41)
[2021-01-17] MEDS: AMLODIPINE 10MG TABLET PO SCH (08:41)
[2021-01-17] MEDS: HYDRALAZINE HCL 100MG TABLET PO SCH ×3 (08:41→17:55)
[2021-01-17 12:00] VITALS: BP 122/60
[2021-01-17 16:00] VITALS: BP 131/58
[2021-01-17 20:00] VITALS: BP 126/51
[2021-01-17] MEDS: ATORVASTATIN CALCIUM 40MG TABLET PO SCH (21:16)
[2021-01-18] VITALS: BP 151/58
[2021-01-18 04:00] VITALS: BP 151/67
[2021-01-18] MEDS: BLOOD SUGAR DIAGNOSTIC STRIP TEST SCH ×5 (04:00→20:00)
[2021-01-18] MEDS: POLYVINYL ALCOHOL OPHTH DROPS 15ML BOTHEYE SCH ×3 (06:13→17:12)
[2021-01-18 08:00] VITALS: BP 175/67
[2021-01-18] MEDS: HYDRALAZINE HCL 100MG TABLET PO SCH ×3 (09:40→17:11)
[2021-01-18] MEDS: FOLIC ACID 1MG TABLET PO SCH (09:40)
[2021-01-18] MEDS: CYANOCOBALAMIN 1000MCG/ML VIAL IM SCH (09:40)
[2021-01-18] MEDS: ISOSORBIDE DINITRATE 20MG TABLET PO SCH ×3 (09:41→17:11)
[2021-01-18] MEDS: OMEPRAZOLE 20MG CAPSULE EXTENDED RELEASE PO SCH (09:41)
[2021-01-18] MEDS: AMLODIPINE 10MG TABLET PO SCH (09:42)
[2021-01-18 12:00] VITALS: BP 154/57
[2021-01-18] MEDS: FUROSEMIDE 40MG TABLET PO SCH ×2 (14:10→17:11)
[2021-01-18 16:00] VITALS: BP 149/52
[2021-01-18 20:00] VITALS: BP 129/58
[2021-01-18] MEDS: ATORVASTATIN CALCIUM 40MG TABLET PO SCH (21:32)
[2021-01-19] VITALS: BP 147/64
[2021-01-19] MEDS: POLYVINYL ALCOHOL OPHTH DROPS 15ML BOTHEYE SCH ×5 (00:18→23:46)
[2021-01-19 04:00] VITALS: BP 121/59
[2021-01-19] MEDS: BLOOD SUGAR DIAGNOSTIC STRIP TEST SCH ×7 (04:16→23:46)
[2021-01-19] MEDS: FUROSEMIDE 40MG TABLET PO SCH ×2 (06:53→17:25)
[2021-01-19] MEDS: OMEPRAZOLE 20MG CAPSULE EXTENDED RELEASE PO SCH (06:53)
[2021-01-19 08:00] VITALS: BP 149/70
[2021-01-19] MEDS: CYANOCOBALAMIN 1000MCG/ML VIAL IM SCH (08:42)
[2021-01-19] MEDS: FOLIC ACID 1MG TABLET PO SCH (08:43)
[2021-01-19] MEDS: HYDRALAZINE HCL 100MG TABLET PO SCH ×4 (08:43→21:11)
[2021-01-19] MEDS: AMLODIPINE 10MG TABLET PO SCH (08:43)
[2021-01-19] MEDS: ISOSORBIDE DINITRATE 20MG TABLET PO SCH ×3 (08:44→17:25)
[2021-01-19 12:00] VITALS: BP 120/53
[2021-01-19 16:00] VITALS: BP 124/62
[2021-01-19 20:00] VITALS: BP 123/62
[2021-01-19] MEDS: ATORVASTATIN CALCIUM 40MG TABLET PO SCH (21:07)
[2021-01-20] VITALS: BP 144/96
[2021-01-20] MEDS: BLOOD SUGAR DIAGNOSTIC STRIP TEST SCH ×5 (03:55→20:00)
[2021-01-20 04:00] VITALS: BP 145/78
[2021-01-20] MEDS: POLYVINYL ALCOHOL OPHTH DROPS 15ML BOTHEYE SCH ×3 (06:24→17:55)
[2021-01-20] MEDS: FUROSEMIDE 40MG TABLET PO SCH ×2 (06:25→17:55)
[2021-01-20] MEDS: OMEPRAZOLE 20MG CAPSULE EXTENDED RELEASE PO SCH (06:25)
[2021-01-20] MEDS: HYDRALAZINE HCL 100MG TABLET PO SCH ×3 (06:25→21:09)
[2021-01-20 08:00] VITALS: BP 136/62
[2021-01-20] MEDS: FOLIC ACID 1MG TABLET PO SCH (08:42)
[2021-01-20] MEDS: AMLODIPINE 10MG TABLET PO SCH (08:42)
[2021-01-20] MEDS: CYANOCOBALAMIN 1000MCG/ML VIAL IM SCH (08:42)
[2021-01-20] MEDS: ISOSORBIDE DINITRATE 20MG TABLET PO SCH ×3 (08:42→17:55)
[2021-01-20 12:00] VITALS: BP 132/60
[2021-01-20 16:00] VITALS: BP 123/58
[2021-01-20 20:00] VITALS: BP 143/73
[2021-01-20] MEDS: ATORVASTATIN CALCIUM 40MG TABLET PO SCH (21:09)
[2021-01-21] VITALS: BP 121/59
[2021-01-21] MEDS: BLOOD SUGAR DIAGNOSTIC STRIP TEST SCH ×6 (00:29→20:00)
[2021-01-21] MEDS: POLYVINYL ALCOHOL OPHTH DROPS 15ML BOTHEYE SCH ×4 (00:29→17:39)
[2021-01-21 04:00] VITALS: BP 153/71
[2021-01-21] MEDS: HYDRALAZINE HCL 100MG TABLET PO SCH ×3 (06:14→21:17)
[2021-01-21] MEDS: FUROSEMIDE 40MG TABLET PO SCH ×2 (06:15→17:38)
[2021-01-21] MEDS: OMEPRAZOLE 20MG CAPSULE EXTENDED RELEASE PO SCH (06:20)
[2021-01-21 08:00] VITALS: BP 140/58
[2021-01-21] MEDS: FOLIC ACID 1MG TABLET PO SCH (09:30)
[2021-01-21] MEDS: AMLODIPINE 10MG TABLET PO SCH (09:31)
[2021-01-21] MEDS: ISOSORBIDE DINITRATE 20MG TABLET PO SCH ×3 (09:31→17:38)
[2021-01-21 12:00] VITALS: BP 133/64
[2021-01-21 16:00] VITALS: BP 124/68
[2021-01-21 20:00] VITALS: BP 133/60
[2021-01-21] MEDS: ATORVASTATIN CALCIUM 40MG TABLET PO SCH (21:16)
[2021-01-22] VITALS: BP 137/59
[2021-01-22] MEDS: BLOOD SUGAR DIAGNOSTIC STRIP TEST SCH ×5 (00:38→16:00)
[2021-01-22] MEDS: POLYVINYL ALCOHOL OPHTH DROPS 15ML BOTHEYE SCH ×4 (00:38→17:44)
[2021-01-22 04:00] VITALS: BP 158/79
[2021-01-22] MEDS: FUROSEMIDE 40MG TABLET PO SCH ×2 (06:15→17:44)
[2021-01-22] MEDS: HYDRALAZINE HCL 100MG TABLET PO SCH ×2 (06:15→13:02)
[2021-01-22] MEDS: OMEPRAZOLE 20MG CAPSULE EXTENDED RELEASE PO SCH (06:20)
[2021-01-22 08:00] VITALS: BP 137/71
[2021-01-22] MEDS: FOLIC ACID 1MG TABLET PO SCH (08:52)
[2021-01-22] MEDS: ISOSORBIDE DINITRATE 20MG TABLET PO SCH ×3 (08:53→17:44)
[2021-01-22] MEDS: AMLODIPINE 10MG TABLET PO SCH (08:53)
[2021-01-22 12:00] VITALS: BP 140/62
[2021-01-22 16:00] VITALS: BP 110/61
[2021-01-22] MEDS ORDERED: CYAN-50 MT (16:19)
[2021-01-22] MEDS ORDERED: FOLI-43 PO (16:19)
[2021-01-22 17:16] VITALS: BP 110/61
[2021-01-27] MEDS ORDERED: CYANOCOBALAMIN 1000MCG/ML VIAL IM SCH (09:00)
== END 2021-01-22 20:37 | DRG 70 ==
LOC: ER 14:59 → EDBEDREQTM 19:38 → EDBEDREQ 19:38 → ENRESERV 22:16 → CVICU 01-02 00:18 → 7EST 01-04 12:13 → 6EST 01-17 10:20
PROVIDERS: ADMIT Internal Medicine; ATTEND Internal Medicine
DX: G93.41 Metabolic encephalopathy (principal); E43 Unspecified severe protein-calorie malnutrition; N17.0 Acute kidney failure with tubular necrosis; G82.50 Quadriplegia, unspecified; N39.0 Urinary tract infection, site not specified; J90 Pleural effusion, not elsewhere classified; D64.9 Anemia, unspecified; E11.22 Type 2 diabetes mellitus with diabetic chronic kidney disease; E11.649 Type 2 diabetes mellitus with hypoglycemia without coma; M19.90 Unspecified osteoarthritis, unspecified site; E53.8 Deficiency of other specified B group vitamins; E66.9 Obesity, unspecified; E87.8 Other disorders of electrolyte and fluid balance, not elsewhere classified; R53.81 Other malaise; R26.9 Unspecified abnormalities of gait and mobility; M48.02 Spinal stenosis, cervical region; N28.1 Cyst of kidney, acquired; I12.9 Hypertensive chronic kidney disease with stage 1 through stage 4 chronic kidney disease, or unspecified chronic kidney disease; J45.909 Unspecified asthma, uncomplicated; N18.30 Chronic kidney disease, stage 3 unspecified; M48.061 Spinal stenosis, lumbar region without neurogenic claudication; M48.07 Spinal stenosis, lumbosacral region; E11.42 Type 2 diabetes mellitus with diabetic polyneuropathy; Z88.6 Allergy status to analgesic agent; Z68.32 Body mass index [BMI] 32.0-32.9, adult; Z88.5 Allergy status to narcotic agent; Z71.3 Dietary counseling and surveillance
CPT/HCPCS: 36415; 70551; 72141; 72146; 72148; 80048; 80053; 81003; 82140; 82533; 82607; 82728; 82746; 82962; 83036; 83540; 83550; 84145; 84443; 85025; 87077; 87186; 92523; 92610; 93005; 93970; 97110; 97162; 97166; 97530; 99291; J1650; J3420; J7040; J7042; J7070; A4315